=== PATIENT | male | born 1985 ===

== ENCOUNTER 2019-07-30 20:11 | Emergency (ER) | payer OTHER ==
[~2019-07-30] VITALS: Ht 160 cm; Wt 88.0 kg
[2019-07-30 20:56] LABS: STREP SCREEN NEGATIVE
[2019-07-30] MEDS ORDERED: AMOXICILLIN 50500 MG PO (20:59)
[2019-07-30 21:08] VITALS: BP 122/86; PULSE 93; TEMP 99.2
== END 2019-07-30 21:08 | disposition home or self-care (01) ==
LOC: COL.ER 20:11
PROVIDERS: Physician Assistant
DX: J02.9 Acute pharyngitis, unspecified (principal)